=== PATIENT | female | born 1985 | race Caucasian/White ===

== ENCOUNTER 2018-05-20 17:50 | Emergency (ER) | payer SELFPAY ==
[~2018-05-20] VITALS: Ht 154.9 cm; Wt 80.9 kg
[~2018-05-20 17:50] MED LIST: AVIANE PO; NO HOME MEDS; SPRINTEC 2828 DAY PO
[2018-05-20 20:21] VITALS: BP 132/83
[2018-05-20] MEDS ORDERED: LORTAB 1010 MG PO (20:21)
[2018-05-20] MEDS ORDERED: AMOXICILLIN875 MG PO (20:21)
[2018-05-20] MEDS ORDERED: FLOXIN OTIC0.3 % AS (20:21)
== END 2018-05-20 20:22 | disposition home or self-care (01) | DRG 153 ==
LOC: ED 17:50
DX: H66.92 Otitis media, unspecified, left ear (principal); J02.9 Acute pharyngitis, unspecified

== ENCOUNTER 2018-10-30 07:12 | Emergency (ER) | payer BC ==
[~2018-10-30] VITALS: Ht 154.9 cm; Wt 79.8 kg
[~2018-10-30 07:12] MED LIST changes: +AMOXICILLIN875 MG PO; +FLOXIN OTIC0.3 % AS; +LORTAB 1010 MG PO
[2018-10-30 07:43] LABS: URINE BILIRUBIN - DIPSTICK NEGATIVE (NEGATIVE); URINE BLOOD DIPSTICK NEGATIVE (NEGATIVE); URINE COLOR YELLOW; URINE GLUCOSE - DIPSTICK NEGATIVE (NEGATIVE); URINE KETONE 15 mg/dL (NEGATIVE); URINE LEUK ESTERASE NEGATIVE (NEGATIVE); URINE NITRITE - DIPSTICK NEGATIVE (Negative); URINE PROTEIN - DIPSTICK NEGATIVE (NEG-TRACE); URINE SPECIFIC GRAVITY 1.015; URINE UROBILINOGEN - DIPSTICK 0.2 E.U./dL (0.2)
[2018-10-30 08:17] LABS: IMMATURE GRANULOCYTES 0.4 % (0.0-5.0); MEAN CORPUSCULAR HGB 29.4 pG CALC (26.0-32.0); MEAN CORPUSCULAR HGB CONC 34.6 g/L CALC (32.0-36.0); NEUT# 8.96 thou/uL (2.00-7.15); RED CELL DISTRI WIDTH 13.1 % (11.5-15.5)
[2018-10-30 08:24] LABS: HEMATOCRIT 42.5 % (37.0-47.0); HEMOGLOBIN 14.7 g/dl (12.0-16.0)
[2018-10-30 08:27] LABS: ANION GAP 18 (6-22 (CALC)); BILIRUBIN, TOTAL 0.8 mg/dL (0.0-1.4); BUN 12 mg/dL (7-17); BUN/CREATININE RATIO 20 (12-20 (CALC)); CARBON DIOXIDE 21 mmol/l (22-30); CHLORIDE 102 mmol/l (95-108); CREATININE 0.6 mg/dL (0.5-1.0); GFR > 60 ML/MIN (>=60 (CALC)); GFR FOR AFR.AMER. > 60 ML/MIN (>=60 (CALC)); POTASSIUM 4.2 mmol/l (3.5-5.1); SGOT/AST 21 u/l (14-36); SODIUM 137 mmol/l (137-146)
[2018-10-30 08:33] LABS: ALBUMIN 4.7 g/dL (3.2-5.0); ALKALINE PHOSPHATASE 61 u/l (38-126); TOTAL PROTEIN 7.4 g/dL (6.3-8.2)
[2018-10-30] MEDS ORDERED: ULTRAM50 M1 PO (14:13)
[2018-10-30] MEDS ORDERED: TORADOL PO (14:13)
[2018-10-30 14:41] VITALS: BP 111/58
== END 2018-10-30 14:50 | disposition home or self-care (01) | DRG 761 ==
LOC: ED 07:12
PROVIDERS: Emergency Medicine
DX: N83.201 Unspecified ovarian cyst, right side (principal)
CPT/HCPCS: Q9967

== ENCOUNTER 2020-02-10 17:36 | Emergency (ER) | payer BC ==
[~2020-02-10 17:36] MED LIST changes: +TORADOL PO; +ULTRAM50 M1 PO
[2020-02-10 18:22] LABS: HEMATOCRIT 44.2 % (37.0-47.0); IMMATURE GRANULOCYTES 0.4 % (0.0-5.0); MEAN CELL VOLUME 84.7 fL CALC (80.0-100.0); MEAN CORPUSCULAR HGB 28.7 pG CALC (26.0-32.0); MEAN CORPUSCULAR HGB CONC 33.9 g/dL CAL (32.0-36.0); NEUT# 11.03 thou/uL (2.00-7.15); RED BLOOD COUNT 5.22 mill/uL (4.20-5.60); RED CELL DISTRI WIDTH 13.2 % (11.5-15.5)
[2020-02-10 18:23] LABS: URINE BILIRUBIN - DIPSTICK NEGATIVE (NEGATIVE); URINE BLOOD DIPSTICK NEGATIVE (NEGATIVE); URINE COLOR YELLOW; URINE GLUCOSE - DIPSTICK NEGATIVE (NEGATIVE); URINE KETONE 40 mg/dL (NEGATIVE); URINE LEUK ESTERASE NEGATIVE (NEGATIVE); URINE NITRITE - DIPSTICK NEGATIVE (Negative); URINE PH 6.5 (4.5-8.0); URINE PROTEIN - DIPSTICK NEGATIVE (NEG-TRACE); URINE UROBILINOGEN - DIPSTICK 0.2 E.U./dL (0.2)
[2020-02-10 18:43] LABS: ALBUMIN 4.7 g/dL (3.2-5.0); ALKALINE PHOSPHATASE 70 u/l (38-126); ANION GAP 17 (6-22 (CALC)); BILIRUBIN, TOTAL 0.5 mg/dL (0.0-1.4); BUN 11 mg/dL (7-17); BUN/CREATININE RATIO 16 (12-20 (CALC)); CARBON DIOXIDE 19 mmol/l (22-30); CHLORIDE 106 mmol/l (95-108); CREATININE 0.7 mg/dL (0.5-1.0); GFR > 60 ML/MIN (>=60 (CALC)); GFR FOR AFR.AMER. > 60 ML/MIN (>=60 (CALC)); POTASSIUM 3.8 mmol/l (3.5-5.1); SGOT/AST 25 u/l (14-36); SODIUM 137 mmol/l (137-146)
[2020-02-10 18:45] LABS: ACT PARTIAL THROMBO TIME 29.9 SECONDS (20.0-32.5); D-DIMER 0.58 mg/L (0.19-0.60); INTERNATIONAL NORMALIZED RATIO 1.2 RATIO (0.7-1.3)
[2020-02-10 18:55] LABS: MYOGLOBIN 20 ng/mL (0 - 62)
[2020-02-10 19:03] VITALS: BP 117/63
== END 2020-02-10 19:32 | disposition home or self-care (01) | DRG 310 ==
LOC: ED 17:36
PROVIDERS: Family Medicine
DX: R00.2 Palpitations (principal)

== ENCOUNTER 2022-11-21 22:50 | Emergency (ER) | payer OTHER ==
[~2022-11-21] VITALS: Ht 154.9 cm; Wt 90.0 kg
[2022-11-21 23:34] VITALS: BP 119/77
[2022-11-22] MEDS ORDERED: ROBITUSSIN AC10 ML PO (01:51)
[2022-11-22] MEDS ORDERED: KEFLEX500 MG PO (01:51)
== END 2022-11-22 02:22 | disposition home or self-care (01) ==
LOC: ED 22:50
DX: J06.9 Acute upper respiratory infection, unspecified (principal); Z20.822 Contact with and (suspected) exposure to COVID-19

== ENCOUNTER 2023-01-13 17:01 | Emergency (ER) | payer OTHER ==
[~2023-01-13] VITALS: Ht 154.9 cm; Wt 81.8 kg
[~2023-01-13 17:01] MED LIST changes: +KEFLEX500 MG PO; +ROBITUSSIN AC10 ML PO
[2023-01-13] MEDS ORDERED: SERTRALINE25 MG PO (17:18)
[2023-01-13] MEDS ORDERED: NAPROXEN500 MG PO (17:52)
[2023-01-13 17:56] VITALS: BP 156/86
== END 2023-01-13 17:58 | disposition home or self-care (01) ==
LOC: ED 17:01
DX: S60.211A Contusion of right wrist, initial encounter (principal); W18.30XA Fall on same level, unspecified, initial encounter; Y93.61 Activity, american tackle football